=== PATIENT | female | born 1975 | race Caucasian/White ===

== ENCOUNTER 2016-07-14 14:10 | Emergency (ER) | payer MEDICAID ==
[~2016-07-14] VITALS: Ht 160 cm; Wt 69.0 kg
[~2016-07-14 14:10] MED LIST: AMLO10TA80 PO
[2016-07-14] MEDS ORDERED: BACITRACIN ZINC OINT UDPKT TOP ONE (20:15)
[2016-07-14] MEDS ORDERED: HYDROCODONE/ACETAMINOPHEN 5/325MG TABLET PO ONE (20:15)
[2016-07-14] MEDS ORDERED: LIDOCAINE HCL 1% 20ML VIAL (Pyxis) INJ MC ONE (20:15)
[2016-07-14] MEDS ORDERED: TETANUS, DIPHTHERIA, PERTUSSIS VAC/PF 0.5ML (>7YR OLD) IM ONE (20:15)
[2016-07-14 22:14] VITALS: BP 156/79
== END 2016-07-14 22:15 | disposition home or self-care (01) ==
LOC: ER 17:53
DX: S61.401A Unspecified open wound of right hand, initial encounter (principal); I11.9 Hypertensive heart disease without heart failure; I51.9 Heart disease, unspecified; Z90.710 Acquired absence of both cervix and uterus; Z98.890 Other specified postprocedural states; W45.8XXA Other foreign body or object entering through skin, initial encounter; Y93.89 Activity, other specified; Y92.89 Other specified places as the place of occurrence of the external cause; Y99.8 Other external cause status
CPT/HCPCS: 12001; 90471; 90715; 99283; J3490; Z7610

== ENCOUNTER 2018-05-27 22:59 | Inpatient (IN) | payer MEDICAID, MEDICARE ==
[~2018-05-27] VITALS: Ht 154.9 cm; Wt 68.7 kg
[2018-05-28] VITALS (8 sets, daily range): BP systolic 118–142; BP diastolic 71–92
[2018-05-28] MEDS ORDERED: MORPHINE SULFATE 4 MG/ML CPJ (NOT FOR IM USE) IV STA (00:19)
[2018-05-28] MEDS ORDERED: ONDANSETRON HCL 4MG/2ML INJ IV STA (00:19)
[2018-05-28] MEDS ORDERED: CLONIDINE 0.1MG TABLET PO ONE (00:30)
[2018-05-28] MEDS ORDERED: ASPIRIN 81MG TABLET PO ONE (00:30)
[2018-05-28 00:51] LABS: CHLORIDE 105 mEq/L (98-107)
[2018-05-28 00:56] LABS: BASOPHILS % 0.6 % (0.0-2.0); EOSINOPHILS % 2.1 % (0.0-5.0); HEMATOCRIT. 38.6 % (36.0-48.0); HEMOGLOBIN. 13.6 g/dL (12.0-16.0); LYMPHOCYTES % 28.8 % (20.0-50.0); MEAN CORPUSCULAR HEMOGLOBIN 31.3 pg (28.0-32.0); MEAN CORPUSCULAR VOLUME 89.1 fL (81.0-99.0); MEAN PLATELET VOLUME 10.4 fl (7.4-10.4); MONOCYTES % 7.5 % (2.0-8.0); PLATELET 221 x1000/uL (130-400); RED BLOOD CELL COUNT 4.34 mill/uL (4.2-5.4); RED CELL DISTRIBUTION WIDTH 12.2 % (11.6-14.6)
[2018-05-28 01:04] LABS: D-DIMER 0.95 mg/L FEU (<0.50); PROTHROMBIN TIME 10.1 sec (9.1-11.1)
[2018-05-28 01:11] LABS: HCG SCREEN NEGATIVE
[2018-05-28 01:16] LABS: CLARITY URINE CLEAR (CLEAR); COLOR URINE YELLOW (YELLOW); KETONES URINE NEGATIVE (NEGATIVE); LEUKOCYTE ESTERASE URINE NEGATIVE (NEGATIVE); NITRITE URINE NEGATIVE (NEGATIVE); OCCULT BLOOD URINE TRACE (NEGATIVE); PROTEIN URINE NEGATIVE (NEGATIVE); SPECIFIC GRAVITY URINE 1.007 (1.005-1.030); UROBILINOGEN URINE 0.2 E.U./dL (0.2-1.0)
[2018-05-28] MEDS ORDERED: KETOROLAC 15MG/ML VIAL IV ONE (01:30)
[2018-05-28] MEDS ORDERED: HYDRALAZINE 20MG/ML VIAL IV ONE (01:30)
[2018-05-28] MEDS ORDERED: MAGNESIUM/ALUMINUM HYDROXIDE/SIMETHICONE 30ML UDC PO ONE (01:30)
[2018-05-28] MEDS ORDERED: FAMOTIDINE 20MG/2ML VIAL IV ONE (01:30)
[2018-05-28] MEDS ORDERED: IOHEXOL-350 100 ML BOTTLE ONE (01:39)
[2018-05-28] MEDS ORDERED: ONDANSETRON HCL 4MG/2ML INJ IV ONE (04:15)
[2018-05-28] MEDS ORDERED: SODIUM CHLORIDE 0.9% 2,000 ML IV ONE (04:29)
[2018-05-28] MEDS ORDERED: HYDROCORTISONE SOD SUCCINATE 100 MG/2 ML VIAL IV ONE (04:30)
[2018-05-28] MEDS ORDERED: DOCUSATE SODIUM 100MG CAPSULE PO PRN (07:00)
[2018-05-28] MEDS: SODIUM CHLORIDE 0.9% 1,000 ML IV SCH ×2 (07:11→20:48)
[2018-05-28] MEDS ORDERED: KCL 10MEQ/50ML PREMIX 50 ML IV NR (07:19)
[2018-05-28 08:44] LABS: T4 FREE 1.2 ng/dL (0.76-1.46)
[2018-05-28] MEDS ORDERED: POTASSIUM CHLORIDE 20MEQ TABLET SR PO SCH (10:15)
[2018-05-28] MEDS: ONDANSETRON HCL 4MG/2ML INJ IV PRN (10:51)
[2018-05-28] MEDS ORDERED: CLOPIDOGREL 75MG TABLET PO NR (11:15)
[2018-05-28] MEDS: ACETAMINOPHEN 325MG TABLET PO PRN ×2 (14:22→20:51)
[2018-05-28] MEDS ORDERED: ALBUMIN HUMAN 25GM/500ML (5%) IV PRN (15:15)
[2018-05-29] VITALS (13 sets, daily range): BP systolic 105–151; BP diastolic 63–103
[2018-05-29] MEDS: HYDROCODONE/ACETAMINOPHEN 5/325MG TABLET PO PRN ×2 (01:20→09:40)
[2018-05-29 06:50] LABS: BASOPHILS % 0.7 % (0.0-2.0); EOSINOPHILS % 1.2 % (0.0-5.0); HEMATOCRIT. 32.1 % (36.0-48.0); HEMOGLOBIN. 11.3 g/dL (12.0-16.0); LYMPHOCYTES % 36.6 % (20.0-50.0); MEAN PLATELET VOLUME 11.2 fl (7.4-10.4); MONOCYTES % 6.6 % (2.0-8.0); NEUTROPHILS % 54.9 % (40.0-76.0); PLATELET 170 x1000/uL (130-400); RED BLOOD CELL COUNT 3.53 mill/uL (4.2-5.4); RED CELL DISTRIBUTION WIDTH 12.6 % (11.6-14.6)
[2018-05-29 06:55] LABS: CHLORIDE 113 mEq/L (98-107)
[2018-05-29 07:04] LABS: LDL CHOLESTEROL 57 mg/dL (5-100)
[2018-05-29 07:07] LABS: HDL CHOLESTEROL 37 mg/dL (40-59)
[2018-05-29] MEDS: CLOPIDOGREL 75MG TABLET PO SCH (09:39)
[2018-05-29] MEDS: SODIUM CHLORIDE 0.9% 1,000 ML IV SCH (09:41)
[2018-05-29] MEDS ORDERED: HYDROMORPHONE HCL/PF 2MG/ML CPJ IV PRN (11:00)
[2018-05-29] MEDS: ONDANSETRON HCL 4MG/2ML INJ IV PRN (15:09)
[2018-05-29] MEDS ORDERED: GADOBENATE DIMEGLUMINE 529 MG/ML 10ML IV ONE (16:15)
[2018-05-29] MEDS ORDERED: IOHEXOL-350 100 ML BOTTLE ONE (17:27)
[2018-05-29] MEDS ORDERED: IOHEXOL-300 100 ML BOTTLE ONE (17:27)
[2018-05-29] MEDS: ACETAMINOPHEN 325MG TABLET PO PRN (21:08)
[2018-05-30] VITALS (11 sets, daily range): BP systolic 114–141; BP diastolic 32–85
[2018-05-30] MEDS: ACETAMINOPHEN 325MG TABLET PO PRN (03:06)
[2018-05-30] MEDS: SODIUM CHLORIDE 0.9% 1,000 ML IV SCH (05:15)
[2018-05-30 06:28] LABS: CHLORIDE 108 mEq/L (98-107)
[2018-05-30 06:31] LABS: BASOPHILS % 0.7 % (0.0-2.0); EOSINOPHILS % 1.5 % (0.0-5.0); HEMATOCRIT. 33.8 % (36.0-48.0); HEMOGLOBIN. 11.7 g/dL (12.0-16.0); LYMPHOCYTES % 34.7 % (20.0-50.0); MEAN CORPUSCULAR VOLUME 89.8 fL (81.0-99.0); MEAN PLATELET VOLUME 10.6 fl (7.4-10.4); MONOCYTES % 6.9 % (2.0-8.0); NEUTROPHILS % 56.2 % (40.0-76.0); PLATELET 194 x1000/uL (130-400); RED BLOOD CELL COUNT 3.76 mill/uL (4.2-5.4); RED CELL DISTRIBUTION WIDTH 12.7 % (11.6-14.6)
[2018-05-30] MEDS: CLOPIDOGREL 75MG TABLET PO SCH (08:36)
[2018-05-30] MEDS: HYDROCODONE/ACETAMINOPHEN 10/325MG TABLET PO PRN ×2 (09:29→15:45)
[2018-05-30] MEDS ORDERED: POTASSIUM CHLORIDE 20MEQ TABLET SR PO NR (12:30)
== END 2018-05-31 00:15 | disposition home or self-care (01) | DRG 641 ==
LOC: ER 22:59 → EDBEDREQ 05-28 01:50 → EDBEDREQTM 05-28 01:50 → EDBEDREQSVC 05-28 05:25 → SUPCPDRO 05-28 06:55 → ENRESERV 05-28 08:03 → 5EST 05-28 11:59
PROVIDERS: ADMIT Hospitalist; ATTEND Hospitalist
DX: E87.6 Hypokalemia (principal); I48.0 Paroxysmal atrial fibrillation; I25.10 Atherosclerotic heart disease of native coronary artery without angina pectoris; I95.9 Hypotension, unspecified; I10 Essential (primary) hypertension; G51.0 Bell's palsy; R07.89 Other chest pain; R51 Headache; I25.2 Old myocardial infarction; Z79.02 Long term (current) use of antithrombotics/antiplatelets; Z82.3 Family history of stroke; Z82.49 Family history of ischemic heart disease and other diseases of the circulatory system; Z95.5 Presence of coronary angioplasty implant and graft; Z90.710 Acquired absence of both cervix and uterus; Z98.891 History of uterine scar from previous surgery
CPT/HCPCS: 36415; 70544; 70553; 71045; 71275; 74174; 80061; 80320; 82962; 83735; 83880; 84439; 84443; 84484; 84703; 85379; 93005; 93306; 93970; 96374; 96375; 99285; A9577; J0360; J1170; J1720; J1885; J2270; J2405; J3480; J3490; J7030; Q9967; G0480

== ENCOUNTER 2023-04-10 00:28 | Emergency (ER) | payer MEDICARE, OTHER ==
[~2023-04-10] VITALS: Ht 172.7 cm; Wt 74.0 kg
[2023-04-10 00:38] VITALS: O2SAT 100
[2023-04-10 00:39] VITALS: BP 172/103; PULSE 87; RESP 18; TEMP 98
[2023-04-10 01:04] LABS: BASOPHILS % 0.7 % (0.0-2.0); EOSINOPHILS % 2.3 % (0.0-5.0); HEMATOCRIT. 39.2 % (36.0-48.0); HEMOGLOBIN. 13.3 g/dL (12.0-16.0); LYMPHOCYTES % 40.8 % (20.0-50.0); MEAN CORPUSCULAR HEMOGLOBIN 30.1 pg (28.0-32.0); MEAN CORPUSCULAR VOLUME 88.7 fL (81.0-99.0); MEAN PLATELET VOLUME 10.4 fl (7.4-10.4); MONOCYTES % 6.1 % (2.0-8.0); NEUTROPHILS % 50.1 % (40.0-76.0); PLATELET 225 x1000/uL (130-400); RED BLOOD CELL COUNT 4.42 mill/uL (4.2-5.4); WHITE BLOOD COUNT 8.2 x1000/uL (4.5-11.0)
[2023-04-10 01:26] LABS: ALANINE AMINOTRANSFERASE 87 IU/L (10-49); ALBUMIN 4.3 g/dL (3.2-4.8); ASPARTATE AMINOTRANSFERASE 54 IU/L (<34); BILIRUBIN TOTAL 0.4 mg/dL (0.1-1.0); CALCIUM 9.3 mg/dL (8.7-10.4); CARBON DIOXIDE 21 mEq/L (21-32); CHLORIDE 108 mEq/L (98-107); CREATININE 0.7 mg/dL (0.6-1.0); GLUCOSE 141 mg/dL (70-105); POTASSIUM 3.5 mEq/L (3.5-5.1); PROTEIN TOTAL 7.6 g/dL (6.0-8.3); SODIUM 139 mEq/L (136-145); TROPONIN I HIGH SENSITIVITY 14 ng/L (3.0-34); UREA NITROGEN BLOOD 9 mg/dL (9-23)
[2023-04-10 03:44] LABS: CLARITY URINE CLEAR (CLEAR); COLOR URINE YELLOW (YELLOW); GLUCOSE URINE NEGATIVE (NEGATIVE); KETONES URINE NEGATIVE (NEGATIVE); LEUKOCYTE ESTERASE URINE NEGATIVE (NEGATIVE); NITRITE URINE NEGATIVE (NEGATIVE); OCCULT BLOOD URINE 2+ (NEGATIVE); PROTEIN URINE NEGATIVE (NEGATIVE); SPECIFIC GRAVITY URINE 1.005 (1.005-1.030); UROBILINOGEN URINE 0.2 E.U./dL (0.2-1.0)
[2023-04-10 04:03] LABS: UCG SCREEN NEGATIVE
[2023-04-10 05:07] LABS: SQUAMOUS EPITHELIAL CELL URINE FEW /lpf (RARE/1+)
[2023-04-10 05:08] LABS: BACTERIA URINE NONE SEEN; RBC URINE 0-2 /hpf (0-2); WBC URINE 0-2 /hpf (0-2)
== END 2023-04-10 02:56 | disposition left against medical advice (07) ==
LOC: ER 00:28
DX: R07.89 Other chest pain (principal); R11.0 Nausea
CPT/HCPCS: 36415; 71045; 80053; 81003; 81025; 84484; 85025; 93005; 99285